=== PATIENT | male | born 1955 | race African-American/Black ===

== ENCOUNTER 2018-06-20 10:27 | Inpatient (IN) | payer OTHER ==
[2018-06-20 11:26] VITALS: BMI 23.6
--- NOTE | 2018-06-20 15:38 | HP ---
COWS - Scale Resting Pulse: 0= [place] 80 or Below (patient had street methadone prior arrival to patient [facility]) Sweatin= Chills/Flushing Restless Observation: 1= Difficult to Sit Still Pupil Size: 0= Normal to Room Light Bone or Joint Aches: 2= Severe Diffuse Aches Runny Nose/ Eye Tearin= Nasal Congestion GI Upset > 30mins: 2= Nausea/Diarrhea Tremor Observation: 2= Slight Tremor Visible Yawning Observation: 2= >3x During Session Anxiety or Irritability: 2=Irritable/Anxious Goose Flesh Skin: 0=Smooth Skin COWS Score: 13 CIWA Score - CIWA Score Nausea/Vomitin-Mild Nausea/No Vomiting Muscle Tremors: 4-Moderate,w/Arms Extend Anxiety: 4-Mod. Anxious/Guarded Agitation: 4-Moderately Restless Paroxysmal Sweats: 1-Minimal Palms Moist Orientation: 0-Oriented Tacttile Disturbances: 0-None Auditory Disturbances: 0-None Visual Disturbances: 0-None Headache: 0-None Present CIWA-Ar Total Score: 14 Admission [facility] - HPI Chief Complaint: alcohol and opiate withdrawal sx Allergies/Adverse Reactions: Allergies Allergy/AdvReac Type Severity Reaction Status Date / Time No Known Allergies Allergy Verified 06/20/18 11:26 History of Present Illness: 62 years old male with long history of alcohol opiate nicotine dependence has hypertension weight loss and arthritis of the lumbar spine and anxiety with depression is admitted to detox longest sobriety 16 years Exam Limitations: No Limitations - Ebola screening Have you traveled outside of the country in the last 21 days: No Have you had contact with anyone from an Ebola affected area: No Have you been sick,other than usual withdrawal symptoms: No Do you have a fever: No - Review of Systems Constitutional: Loss of Appetite, Changes in sleep, Unintentional Wgt. Loss, Unexplained wgt Loss EENT: reports: Blurred Vision (need eye glasses) Respiratory: reports: No Symptoms reported Cardiac: reports: No Symptoms Reported GI: reports: Poor Appetite, Poor Fluid Intake, Abdominal cramping : reports: No Symptoms Reported Musculoskeletal: reports: Back Pain, Joint Pain, Muscle Pain, Neck Pain Integumentary: reports: No Symptoms Reported Neuro: reports: Tremors Endocrine: reports: No Symptoms Reported Hematology: reports: No Symptoms Reported Psychiatric: reports: Judgement Intact, Orientated x3, Anxious, Depressed Other Systems: Reviewed and Negative Patient History - Patient Medical History Hx Anemia: No Hx Asthma: No Hx Chronic Obstructive Pulmonary Disease (COPD): No Hx Cancer: No Hx Cardiac Disorders: No Hx Congestive Heart Failure: No Hx Hypertension: Yes (DIAGNOSED 1 WEEK AGO, NOT ON MEDICATIONS) Hx Hypercholesterolemia: Yes (no treatment) Hx Pacemaker: No HX Cerebrovascular Accident: No Hx Seizures: No Hx Dementia: No Hx Diabetes: No Hx Gastrointestinal Disorders: No Hx Liver Disease: No Hx Genitourinary Disorders: No Hx Sexually Transmitted Disorders: Yes (GONORRHEA AND WAS TREATED 2 YEARS AGO) Hx Renal Disease (ESRD): No Hx Thyroid Disease: No Hx Human Immunodeficiency Virus (HIV): No Hx Hepatitis C: No Hx Depression: Yes Hx Suicide Attempt: No Hx Bipolar Disorder: No Hx Schizophrenia: No - Patient Surgical History Past Surgical History: No Hx Neurologic Surgery: No Hx Cataract Extraction: No Hx Cardiac Surgery: No Hx Lung Surgery: No Hx Breast Surgery: No Hx Breast Biopsy: No Hx Abdominal Surgery: No Hx Appendectomy: No Hx Cholecystectomy: No Hx Genitourinary Surgery: No Hx Orthopedic Surgery: No - PPD History Previous Implant?: Yes Documented Results: Positive w/o proof Implanted On Prior [facility] Admission?: No PPD to be Administered?: No - Smoking Cessation Smoking history: Current every day smoker Have you smoked in the past 12 months: Yes Aproximately how many cigarettes per day: 30 Cigars Per Day: 0 Hx Chewing Tobacco Use: No Initiated information on smoking cessation: Yes 'Breaking Loose' booklet given: 06/20/18 - Substance & Tx. History Hx Alcohol Use: Yes Hx Substance Use: Yes Substance Use Type: Alcohol, Heroin, Marijuana, Opiates Hx Substance Use Treatment: Yes (2001) - Substances Abused Alcohol Route: Oral Frequency: Daily Amount used: 1 pint of vodka, 2 bottles of wine coolers Age of first use: 49 Date of Last Use: 06/20/18 Heroin Route: Inhalation Frequency: Daily Amount used: 10 bags Age of first use: 16 Date of Last Use: 06/20/18 Family Disease History - Family Disease History Family Disease History: Heart Disease: Brother, [place]: Father (), Other: Father, Mother () Admission Physical Exam [facility] - Vital Signs Vital Signs: Vital Signs - 24 hr 08/30/18 11:22 Temperature 97.3 F L Pulse Rate 67 Respiratory 20 Rate Blood Pressure 117/84 - Physical General Appearance: Yes: Within Normal Limits, Appropriately Dressed, Mild Distress, Alcohol on Breath, Thin, Tremorous, Irritable, Sweating, Anxious HEENTM: Yes: Hearing grossly Normal, Normocephalic, Normal Voice Respiratory: Yes: Chest Non-Tender, Lungs Clear, Normal Breath Sounds, No Respiratory Distress, No Accessory Muscle Use Neck: Yes: Supple, Trachea in good position Breast: Yes: Breasts Symetrical, No Discharge Cardiology: Yes: Regular Rhythm, Regular Rate, S1, S2 Abdominal: Yes: Normal Bowel Sounds, Non Tender, Flat Genitourinary: Yes: Within Normal Limits Back: Yes: Normal Inspection Musculoskeletal: Yes: full range of Motion, Gait Steady, Back pain, Muscle Pain Extremities: Yes: Normal Inspection, Normal Range of Motion, Non-Tender, Tremors Neurological: Yes: Fully Oriented, Alert, Motor Strength 5/5, Normal Response, Depressed Affect Integumentary: Yes: Normal Color, Warm Lymphatic: Yes: Within Normal Limits - Diagnostic (1) Alcohol dependence with uncomplicated withdrawal Current Visit: Yes Status: Acute (2) Opioid dependence with withdrawal Current Visit: Yes Status: Acute (3) Hypertension Current Visit: Yes Status: Chronic Qualifiers: Hypertension type: unspecified secondary hypertension Qualified Code(s): I15.9 - Secondary hypertension, unspecified; I15 - Secondary hypertension (4) Arthritis Current Visit: Yes Status: Chronic (5) Weight loss Current Visit: Yes Status: Acute (6) Positive PPD, treated Current Visit: No Status: Resolved (7) Anxiety and depression Current Visit: Yes Status: Suspected Cleared for Admission [facility] - Detox or Rehab [facility] Level of Care: Medically Managed Detox Regimen/Protocol: Methadone/Librium [facility] Breath Alcohol Content Breath Alcohol Content: 0.014 Urine Drug Screen - Results Drug Screen Negative: Yes Urine Drug Screen Results: THC-Marijuana, OPI-Opiates, MTD-Methadone, OXY- Oxycodone
[2018-06-20] MEDS ORDERED: MAGNESIUM HYDROX 2400MG/30ML ORAL SUSPENSION 30 ML CUP PO PRN (15:45)
[2018-06-20] MEDS ORDERED: ACETAMINOPHEN 325 MG TABLET (FP) PO PRN (15:45)
[2018-06-20] MEDS ORDERED: chlordiazePOXIDE HCL 25 MG CAPSULE PO PRN (15:45)
[2018-06-20] MEDS ORDERED: guaiFENesin/D-METHORPHAN HB 10 ML UNIT-DOSE CUPS PO PRN (15:45)
[2018-06-20] MEDS ORDERED: LOPERAMIDE HCL 2 MG CAPSULE PO PRN (15:45)
[2018-06-20] MEDS ORDERED: P-EPHED 60MG/TRIPROLIDI 2.5MG TABLET PO PRN (15:45)
[2018-06-20] MEDS ORDERED: NICOTINE POLACRILEX 4 MG GUM BC PRN (15:45)
[2018-06-20] MEDS ORDERED: MAGNESIUM CITRATE 300 ML BOTTLE PO PRN (15:45)
[2018-06-20] MEDS ORDERED: MENTHOL/PHENOL 1 EACH UD MM PRN (15:45)
[2018-06-20] MEDS ORDERED: MAG HYDROX/AL HYDROX/SIMETH 30 ML UNIT-DOSE CUP PO PRN (15:45)
[2018-06-20] MEDS ORDERED: METHADONE HCL 10 MG TABLET (FOR DETOX USE ONLY) PO ONE ×2 (18:15→23:00)
[2018-06-20] MEDS: NICOTINE 21 MG/24 HOURS TOPICAL PATCH TD SCH (18:46)
[2018-06-20] MEDS: chlordiazePOXIDE HCL 25 MG CAPSULE PO SCH ×2 (18:47→22:34)
[2018-06-20] MEDS ORDERED: MELATONIN 5 MG TABLETS PO PRN (22:00)
[2018-06-20] MEDS: THIAMINE HCL 100 MG TABLET (FP) PO SCH (22:34)
[2018-06-21 02:44] LABS: URINE APPEARANCE TURBID; URINE BILIRUBIN NEGATIVE (<2.0 mg/dL); URINE COLOR YELLOW; URINE GLUCOSE (UA) NEGATIVE (NEGATIVE); URINE KETONE NEGATIVE (NEGATIVE); URINE LEUK ESTERASE NEGATIVE (NEGATIVE); URINE NITRITE NEGATIVE (NEGATIVE)
[2018-06-21 02:48] LABS: URINE PROTEIN 1+ (NEGATIVE)
[2018-06-21 02:50] LABS: EPI CELLS RARE /HPF (FEW); URINE MUCUS RARE; YEAST MANY
[2018-06-21] MEDS: chlordiazePOXIDE HCL 25 MG CAPSULE PO SCH ×4 (06:16→22:29)
[2018-06-21] MEDS ORDERED: cloNIDine HCL 0.1 MG TABLET PO ONE ×2 (06:53→21:51)
[2018-06-21] MEDS ORDERED: METHADONE HCL 10 MG TABLET (FOR DETOX USE ONLY) PO SCH (10:00)
[2018-06-21] MEDS: NICOTINE 21 MG/24 HOURS TOPICAL PATCH TD SCH (10:27)
[2018-06-21] MEDS: PRENATAL VITAMINS W/ FOLIC ACID TABLET (FP) PO SCH (10:27)
--- NOTE | 2018-06-21 10:28 | EKG ---
Test Reason : Blood Pressure : / mmHG Vent. Rate : 071 BPM Atrial Rate : 071 BPM P-R Int : 118 ms QRS Dur : 100 ms QT Int : 406 ms P-R-T Axes : 037 -14 -40 degrees QTc Int : 441 ms SINUS RHYTHM WITH PREMATURE SUPRAVENTRICULAR COMPLEXES MODERATE VOLTAGE CRITERIA FOR LVH, MAY BE NORMAL VARIANT NONSPECIFIC T WAVE ABNORMALITY ABNORMAL ECG NO PREVIOUS ECGS AVAILABLE Confirmed by DICK ABAD, TIMMY ([id number]) on 06/21/2018 10:28:12 AM Referred By: Confirmed By:TIMMY JENNINGS MD
[2018-06-21 10:59] LABS: HEMATOCRIT 39.8 % (35.4-49); MCH 30.2 pg (25.7-33.7); MCHC 32.6 g/dl (32.0-35.9); MEAN CELL VOLUME 92.5 fl (80-96); PLATELET COUNT 198 K/MM3 (134-434); WHITE BLOOD COUNT 4.4 K/mm3 (4.0-10.0)
[2018-06-21 11:05] LABS: ALBUMIN 3.5 g/dl (3.4-5.0); ANION GAP 6 MMOL/L (8-16); BLOOD UREA NITROGEN 17 mg/dL (7-18); CALCIUM 8.7 mg/dL (8.5-10.1); CHLORIDE 104 mmol/L (98-107); CO2 32 mmol/L (21-32); GLUCOSE,RANDOM 132 mg/dL (74-106); POTASSIUM 4.2 mmol/L (3.5-5.1); SODIUM 142 mmol/L (136-145)
[2018-06-21 11:10] LABS: ALK PHOS 60 U/L (45-117); BILIRUBIN,TOTAL 0.5 mg/dL (0.2-1.0); CREATININE 1.2 mg/dL (0.7-1.3); SGOT/AST 65 U/L (15-37); SGPT/ALT 46 U/L (12-78)
--- NOTE | 2018-06-21 13:13 | CONSULT ---
[facility] Psychiatric Consult - Data Date of interview: 06/21/18 Admission source: [facility] Identifying data: First admission to [facility] for this62 y/o AA male seeking detox treatment on for alcohol,cannabis and opioid dependence.Patient is single,a father of two,domiciled and currently employed. Substance Abuse History: Confirmed by patient in this interview.Smoking history : Current every day smoker. Have you smoked in the past 12 months: Yes. Aproximately how many cigarettes per day: 30. Cigars Per Day: 0. Hx Chewing Tobacco Use: No. Initiated information on smoking cessation: Yes. 'Breaking Loose' booklet given: 06/20/18. - Substance & Tx. History. Hx Alcohol Use: Yes. Hx Substance Use: Yes. Substance Use Type: Alcohol, Heroin, Marijuana, Opiates. Hx Substance Use Treatment: Yes (2001). - Substances Abused. Alcohol. Route: Oral. Frequency: Daily. Amount used: 1 pint of vodka, 2 bottles of wine coolers. Age of first use: 49. Date of Last Use: 06/20/18. * * Heroin. Route: Inhalation. Frequency: Daily. Amount used: 10 bags. Age of first use: 16. Date of Last Use: 06/20/18 Medical History: History of positive PPD (treated),hypertension,arthritis, chronic lumbar pain and a history of treatment for gonorrhea. Psychiatric History: Patient denies. Physical/Sexual Abuse/Trauma History: No history. Additional Comment: Urine Drug Screen Results: THC-Marijuana, OPI-Opiates, MTD- Methadone, OXY-Oxycodone.Noted. Mental Status Exam - Mental Status Exam Alert and Oriented to: Time, Place, Person Cognitive Function: Good Patient Appearance: Well Groomed Mood: Hopeful, Euthymic Affect: Appropriate, Normal Range Patient Behavior: Fatigued Speech Pattern: Clear, Appropriate Voice Loudness: Normal Thought Process: Intact, Goal Oriented Thought Disorder: Not Present Hallucinations: Denies Suicidal Ideation: Denies Homicidal Ideation: Denies Insight/Judgement: Fair Sleep: Well Appetite: Good Muscle strength/Tone: Normal Gait/Station: Normal Psychiatric Findings - Problem List (Ruth 1, 2,3) (1) Opioid dependence with withdrawal Current Visit: Yes Status: Acute (2) Alcohol dependence with uncomplicated withdrawal Current Visit: Yes Status: Acute (3) Marijuana dependence Current Visit: Yes Status: Acute (4) Nicotine dependence Current Visit: Yes Status: Acute - Initial Treatment Plan Initial Treatment Plan: Psychoeducation.Detoxification in progress.Observation.
[2018-06-21] MEDS ORDERED: ONDANSETRON 4 MG/2 ML VIAL IM PRN (18:43)
[2018-06-21] MEDS ORDERED: TRIMETHOBENZAMIDE HCL 200MG/2ML INJ IM ONE (19:20)
[2018-06-21] MEDS: IBUPROFEN 400 MG TABLET (FP) PO PRN (21:30)
[2018-06-21] MEDS: THIAMINE HCL 100 MG TABLET (FP) PO SCH (22:29)
[2018-06-22] MEDS: ONDANSETRON *ODT* 4 MG TABLET SL PRN ×2 (02:00→12:12)
[2018-06-22] MEDS: chlordiazePOXIDE HCL 25 MG CAPSULE PO SCH ×2 (05:35→11:09)
[2018-06-22] MEDS: PRENATAL VITAMINS W/ FOLIC ACID TABLET (FP) PO SCH (09:09)
[2018-06-22] MEDS: METHADONE HCL 5 MG TABLET (FOR DETOX USE ONLY) PO SCH (09:09)
[2018-06-22] MEDS: NICOTINE 21 MG/24 HOURS TOPICAL PATCH TD SCH (11:09)
[2018-06-22] MEDS ORDERED: chlordiazePOXIDE 5 MG CAPSULE PO SCH (17:00)
[2018-06-22] MEDS ORDERED: diazePAM 5 MG TABLET PO PRN (17:20)
[2018-06-22] MEDS ORDERED: diazePAM 5 MG TABLET PO ONE (17:30)
--- NOTE | 2018-06-22 19:00 | PN ---
S CIWA - CIWA Score Nausea/Vomitin Muscle Tremors: 2 Anxiety: 1-Mildly Anxious Agitation: 1-Slight > Activity Paroxysmal Sweats: 1-Minimal Palms Moist Orientation: 0-Oriented Tacttile Disturbances: 0-None Auditory Disturbances: 0-None Visual Disturbances: 0-None Headache: 1-Very Mild CIWA-Ar Total Score: 9 S COWS - Scale Resting Pulse: 1= [place] 81-100 Sweatin= Chills/Flushing Restless Observation: 1= Difficult to Sit Still Pupil Size: 0= Normal to Room Light Bone or Joint Aches: 0= None Runny Nose/ Eye Tearin= Nasal Congestion GI Upset > 30mins: 1= Stomach Cramp Tremor Observation of Outstretched Hands: 1= Tremor [place], Not Seen Yawning Observation: 0= None Anxiety or Irritability: 0= None Goose Flesh Skin: 0=Smooth Skin COWS Score: 6 S Progress Note (SOAP) Subjective: pt states he needs something for nausea, also wants valium rather than librium O: Vital Signs - 24 hr 06/21/18 06/22/18 06/22/18 21:16 00:30 03:30 Temperature 97.6 F Pulse Rate 55 L Respiratory 18 18 18 Rate Blood Pressure 180/106 06/22/18 06/22/18 06/22/18 06:28 06:53 11:21 Temperature 98.4 F 98.0 F Pulse Rate 49 L 53 L 86 Respiratory 18 20 Rate Blood Pressure 188/101 147/81 138/107 06/22/18 06/22/18 13:56 18:12 Temperature 98.6 F 97.4 F L Pulse Rate 74 96 H Respiratory 18 18 Rate Blood Pressure 148/96 119/87 Laboratory Tests 06/21/18 06/21/18 06/21/18 00:45 06:00 06:00 WBC 4.4 RBC 4.30 Hgb 13.0 Hct 39.8 MCV 92.5 MCH 30.2 MCHC 32.6 RDW 14.0 Plt Count 198 MPV 8.0 Sodium 142 Potassium 4.2 Chloride 104 Carbon Dioxide 32 Anion Gap 6 L BUN 17 Creatinine 1.2 Creat Clearance w eGFR > 60 Random Glucose 132 H Calcium 8.7 Total Bilirubin 0.5 AST 65 H ALT 46 Alkaline Phosphatase 60 Total Protein 7.0 Albumin 3.5 Urine Color Yellow Urine Appearance Turbid Urine pH 5.0 Ur Specific [place] 1.032 Urine Protein 1+ H Urine Glucose (UA) Negative Urine Ketones Negative Urine Blood Negative Urine Nitrite Negative Urine Bilirubin Negative Urine Urobilinogen 2.0 Ur Leukocyte Esterase Negative Urine WBC (Auto) 175 Urine RBC (Auto) 5 Ur Epithelial Cells Rare Urine Mucus Rare Urine Yeast Many RPR Titer 06/21/18 06:00 WBC RBC Hgb Hct MCV MCH MCHC RDW Plt Count MPV Sodium Potassium Chloride Carbon Dioxide Anion Gap BUN Creatinine Creat Clearance w eGFR Random Glucose Calcium Total Bilirubin AST ALT Alkaline Phosphatase Total Protein Albumin Urine Color Urine Appearance Urine pH Ur Specific [place] Urine Protein Urine Glucose (UA) Urine Ketones Urine Blood Urine Nitrite Urine Bilirubin Urine Urobilinogen Ur Leukocyte Esterase Urine WBC (Auto) Urine RBC (Auto) Ur Epithelial Cells Urine Mucus Urine Yeast RPR Titer Nonreactive VS Ok increased liver enzyme A/P: 62 years old male with long history of alcohol opiate nicotine dependence, here for detox: continue detox protocol, prn meds for Sx
[2018-06-22] MEDS: THIAMINE HCL 100 MG TABLET (FP) PO SCH (22:51)
[2018-06-22] MEDS: diazePAM 5 MG TABLET PO SCH (22:51)
[2018-06-23] MEDS: cloNIDine HCL 0.1 MG TABLET PO PRN ×2 (05:39→14:14)
[2018-06-23] MEDS: diazePAM 5 MG TABLET PO SCH ×3 (05:40→22:41)
[2018-06-23] MEDS ORDERED: LISINOPRIL 20 MG TABLET (FP) PO ONE (08:41)
[2018-06-23] MEDS: ONDANSETRON *ODT* 4 MG TABLET SL PRN (08:44)
[2018-06-23] MEDS: METHADONE HCL 5 MG TABLET (FOR DETOX USE ONLY) PO SCH (09:09)
[2018-06-23] MEDS: PRENATAL VITAMINS W/ FOLIC ACID TABLET (FP) PO SCH (09:09)
[2018-06-23] MEDS: NICOTINE 21 MG/24 HOURS TOPICAL PATCH TD SCH (09:28)
[2018-06-23] MEDS ORDERED: TRIMETHOBENZAMIDE HCL 200MG/2ML INJ IM ONE (12:06)
--- NOTE | 2018-06-23 12:13 | PN ---
S CIWA - CIWA Score Nausea/Vomitin-No Nausea/No Vomiting Muscle Tremors: 4-Moderate,w/Arms Extend Anxiety: 4-Mod. Anxious/Guarded Agitation: 4-Moderately Restless Paroxysmal Sweats: 1-Minimal Palms Moist Orientation: 0-Oriented Tacttile Disturbances: 0-None Auditory Disturbances: 0-None Visual Disturbances: 0-None Headache: 0-None Present CIWA-Ar Total Score: 13 [facility]HS COWS - Scale Resting Pulse: 0= [place] 80 or Below Sweatin= Chills/Flushing Restless Observation: 3= Extraneous Movement Pupil Size: 2= Moderately Dilated Bone or Joint Aches: 1= Mild Discomfort Runny Nose/ Eye Tearin= None GI Upset > 30mins: 3= Vomiting/Diarrhea Tremor Observation of Outstretched Hands: 2= Slight Tremor Visible Yawning Observation: 1= 1-2x During Session Anxiety or Irritability: 2=Irritable/Anxious Goose Flesh Skin: 0=Smooth Skin COWS Score: 15 S Progress Note (SOAP) Subjective: ANXIETY,SWEATS/CHILLS,IRRITABILITY,NAUSEA/VOMITING,FATIGUE. Objective: 06/23/18 12:12 Vital Signs 06/23/18 06/23/18 06/23/18 06:10 07:29 10:49 Temperature 96.9 F L 98.5 F Pulse Rate 71 69 68 Respiratory 18 18 Rate Blood Pressure 189/99 162/97 152/114 06/23/18 10:50 Temperature Pulse Rate Respiratory Rate Blood Pressure 188/114 Laboratory Tests 06/21/18 06/21/18 06/21/18 00:45 06:00 06:00 WBC 4.4 RBC 4.30 Hgb 13.0 Hct 39.8 MCV 92.5 MCH 30.2 MCHC 32.6 RDW 14.0 Plt Count 198 MPV 8.0 Sodium 142 Potassium 4.2 Chloride 104 Carbon Dioxide 32 Anion Gap 6 L BUN 17 Creatinine 1.2 Creat Clearance w eGFR > 60 Random Glucose 132 H Calcium 8.7 Total Bilirubin 0.5 AST 65 H ALT 46 Alkaline Phosphatase 60 Total Protein 7.0 Albumin 3.5 Urine Color Yellow Urine Appearance Turbid Urine pH 5.0 Ur Specific [place] 1.032 Urine Protein 1+ H Urine Glucose (UA) Negative Urine Ketones Negative Urine Blood Negative Urine Nitrite Negative Urine Bilirubin Negative Urine Urobilinogen 2.0 Ur Leukocyte Esterase Negative Urine WBC (Auto) 175 Urine RBC (Auto) 5 Ur Epithelial Cells Rare Urine Mucus Rare Urine Yeast Many RPR Titer 06/21/18 06:00 WBC RBC Hgb Hct MCV MCH MCHC RDW Plt Count MPV Sodium Potassium Chloride Carbon Dioxide Anion Gap BUN Creatinine Creat Clearance w eGFR Random Glucose Calcium Total Bilirubin AST ALT Alkaline Phosphatase Total Protein Albumin Urine Color Urine Appearance Urine pH Ur Specific [place] Urine Protein Urine Glucose (UA) Urine Ketones Urine Blood Urine Nitrite Urine Bilirubin Urine Urobilinogen Ur Leukocyte Esterase Urine WBC (Auto) Urine RBC (Auto) Ur Epithelial Cells Urine Mucus Urine Yeast RPR Titer Nonreactive UA NOTED ELEVATED WBC Assessment: 06/23/18 12:12 WITHDRAWAL SX Plan: CONTINUE DETOX REPEAT UA TODAY INCREASE PO FLUIDS
[2018-06-23] MEDS ORDERED: chlordiazePOXIDE HCL 10 MG CAPSULE PO SCH (17:00)
[2018-06-23] MEDS: THIAMINE HCL 100 MG TABLET (FP) PO SCH (22:40)
[2018-06-23] MEDS: IBUPROFEN 400 MG TABLET (FP) PO PRN (22:42)
[2018-06-24] MEDS: ONDANSETRON *ODT* 4 MG TABLET SL PRN (08:37)
[2018-06-24] MEDS ORDERED: TRIMETHOBENZAMIDE HCL 200MG/2ML INJ IM ONE (08:55)
[2018-06-24] MEDS ORDERED: TRIMETHOBENZAMIDE HCL 200MG/2ML INJ IM PRN (08:56)
[2018-06-24] MEDS ORDERED: METHADONE HCL 10 MG TABLET (FOR DETOX USE ONLY) PO SCH (10:00)
[2018-06-24] MEDS: NICOTINE 21 MG/24 HOURS TOPICAL PATCH TD SCH (10:35)
[2018-06-24] MEDS: PRENATAL VITAMINS W/ FOLIC ACID TABLET (FP) PO SCH (10:35)
[2018-06-24] MEDS: diazePAM 5 MG TABLET PO SCH ×2 (10:35→22:32)
--- NOTE | 2018-06-24 12:05 | PN ---
[facility] Progress Note (SOAP) Subjective: PT STILL HAVING ACTIVE NAUSEA AND VOMITING. ANXIETY,SLIGHT TREMORS. Objective: 06/24/18 12:04 Vital Signs 06/24/18 06/24/18 06:17 09:14 Temperature 97.2 F L 98.7 F Pulse Rate 72 70 Respiratory 18 16 Rate Blood Pressure 101/68 152/109 Laboratory Tests 06/21/18 06/21/18 06/21/18 00:45 06:00 06:00 WBC 4.4 RBC 4.30 Hgb 13.0 Hct 39.8 MCV 92.5 MCH 30.2 MCHC 32.6 RDW 14.0 Plt Count 198 MPV 8.0 Sodium 142 Potassium 4.2 Chloride 104 Carbon Dioxide 32 Anion Gap 6 L BUN 17 Creatinine 1.2 Creat Clearance w eGFR > 60 Random Glucose 132 H Calcium 8.7 Total Bilirubin 0.5 AST 65 H ALT 46 Alkaline Phosphatase 60 Total Protein 7.0 Albumin 3.5 Urine Color Yellow Urine Appearance Turbid Urine pH 5.0 Ur Specific [place] 1.032 Urine Protein 1+ H Urine Glucose (UA) Negative Urine Ketones Negative Urine Blood Negative Urine Nitrite Negative Urine Bilirubin Negative Urine Urobilinogen 2.0 Ur Leukocyte Esterase Negative Urine WBC (Auto) 175 Urine RBC (Auto) 5 Ur Epithelial Cells Rare Urine Mucus Rare Urine Yeast Many RPR Titer 06/21/18 06:00 WBC RBC Hgb Hct MCV MCH MCHC RDW Plt Count MPV Sodium Potassium Chloride Carbon Dioxide Anion Gap BUN Creatinine Creat Clearance w eGFR Random Glucose Calcium Total Bilirubin AST ALT Alkaline Phosphatase Total Protein Albumin Urine Color Urine Appearance Urine pH Ur Specific [place] Urine Protein Urine Glucose (UA) Urine Ketones Urine Blood Urine Nitrite Urine Bilirubin Urine Urobilinogen Ur Leukocyte Esterase Urine WBC (Auto) Urine RBC (Auto) Ur Epithelial Cells Urine Mucus Urine Yeast RPR Titer Nonreactive Assessment: 06/24/18 12:04 WITHDRAWAL SX Plan: CONTINUE DETOX TIGAN 200 MG IM NOW WAS GIVEN, THEN Q6H PRN FOR ACTIVE VOMITING EPISODES.
[2018-06-24 14:40] LABS: URINE APPEARANCE TURBID; URINE BILIRUBIN NEGATIVE (<2.0 mg/dL); URINE COLOR AMBER; URINE GLUCOSE (UA) 2+ (NEGATIVE); URINE KETONE NEGATIVE (NEGATIVE); URINE LEUK ESTERASE NEGATIVE (NEGATIVE); URINE NITRITE NEGATIVE (NEGATIVE); URINE UROBILINOGEN NEGATIVE mg/dL (0.2-1.0)
[2018-06-24 14:43] LABS: URINE PROTEIN 2+ (NEGATIVE)
[2018-06-24 15:09] LABS: CALCIUM OXALATE CRYSTALS FEW /hpf (NONE SEEN); EPI CELLS RARE /HPF (FEW); URINE HYALINE CAST 14 /lpf; URINE MUCUS FEW
[2018-06-24] MEDS: IBUPROFEN 400 MG TABLET (FP) PO PRN (19:23)
[2018-06-24] MEDS: THIAMINE HCL 100 MG TABLET (FP) PO SCH (22:32)
[2018-06-24] MEDS: cloNIDine HCL 0.1 MG TABLET PO PRN (22:33)
[2018-06-25] MEDS ORDERED: METHADONE HCL 5 MG TABLET (FOR DETOX USE ONLY) PO SCH (06:00)
[2018-06-25 09:17] VITALS: BP 135/87; PULSE 86; TEMP 98.7
--- NOTE | 2018-06-25 17:11 | DS ---
[facility] Detox Discharge Summary Admission Date: 06/20/18 Discharge Date: 06/25/18 - History Present History: Alcohol Dependence, Opioid Dependence Additional Comments: DETOX COMPLETED. ALERT O X 3. Pertinent Past History: DETOX COMPLETED. ALERT OX 3. PT WILL FOLLOW UP WITH HIS PMD DR. INDIRA MARTINEZ FOR MEDICAL MANAGEMENT. - Physical Exam Results Vital Signs: Vital Signs Temperature 98.7 F 06/25/18 09:16 Pulse Rate 86 06/25/18 09:16 Respiratory Rate 18 06/25/18 09:16 Blood Pressure 135/87 06/25/18 09:16 O2 Sat by Pulse Oximetry (%) - Treatment Hospital Course: Detox Protocol Followed, Detoxed Safely, Responded well, Discharged Condition Good - Medication Discharge Medications: Ambulatory Orders NK [No Known Home Medication] 06/20/18 - Diagnosis (1) Alcohol dependence with uncomplicated withdrawal Status: Acute (2) Marijuana dependence Status: Acute (3) Nicotine dependence Status: Acute Qualifiers: Nicotine product type: cigarettes Substance use status: in withdrawal Qualified Code(s): F17.213 - Nicotine dependence, cigarettes, with withdrawal (4) Opioid dependence with withdrawal Status: Acute (5) Weight loss Status: Acute (6) Arthritis Status: Chronic (7) Hypertension Status: Chronic Qualifiers: Hypertension type: unspecified secondary hypertension Qualified Code(s): I15.9 - Secondary hypertension, unspecified; I15 - Secondary hypertension (8) Abnormal finding on urinalysis Status: Acute (9) Nausea & vomiting Status: Acute Qualifiers: Vomiting type: unspecified - AMA Did Patient Leave Against Medical Advice: No
--- NOTE | 2018-06-25 17:11 | PN ---
[facility] Progress Note (SOAP) Subjective: DETOX COMPLETED. ALERT O X 3. NAD. Objective: 06/25/18 17:11 Vital Signs 06/25/18 09:16 Temperature 98.7 F Pulse Rate 86 Respiratory 18 Rate Blood Pressure 135/87 Laboratory Tests 06/21/18 06/21/18 06/21/18 00:45 06:00 06:00 WBC 4.4 RBC 4.30 Hgb 13.0 Hct 39.8 MCV 92.5 MCH 30.2 MCHC 32.6 RDW 14.0 Plt Count 198 MPV 8.0 Sodium 142 Potassium 4.2 Chloride 104 Carbon Dioxide 32 Anion Gap 6 L BUN 17 Creatinine 1.2 Creat Clearance w eGFR > 60 Random Glucose 132 H Calcium 8.7 Total Bilirubin 0.5 AST 65 H ALT 46 Alkaline Phosphatase 60 Total Protein 7.0 Albumin 3.5 Urine Color Yellow Urine Appearance Turbid Urine pH 5.0 Ur Specific [place] 1.032 Urine Protein 1+ H Urine Glucose (UA) Negative Urine Ketones Negative Urine Blood Negative Urine Nitrite Negative Urine Bilirubin Negative Urine Urobilinogen 2.0 Ur Leukocyte Esterase Negative Urine WBC (Auto) 175 Urine RBC (Auto) 5 Ur Epithelial Cells Rare Calcium Oxalate Crystal Hyaline Casts Urine Mucus Rare Urine Yeast Many RPR Titer 06/21/18 06/24/18 06:00 11:00 WBC RBC Hgb Hct MCV MCH MCHC RDW Plt Count MPV Sodium Potassium Chloride Carbon Dioxide Anion Gap BUN Creatinine Creat Clearance w eGFR Random Glucose Calcium Total Bilirubin AST ALT Alkaline Phosphatase Total Protein Albumin Urine Color [place] Urine Appearance Turbid Urine pH 5.0 Ur Specific [place] 1.020 Urine Protein 2+ H Urine Glucose (UA) 2+ H Urine Ketones Negative Urine Blood Negative Urine Nitrite Negative Urine Bilirubin Negative Urine Urobilinogen Negative Ur Leukocyte Esterase Negative Urine WBC (Auto) 8 Urine RBC (Auto) 4 Ur Epithelial Cells Rare Calcium Oxalate [place] Few Hyaline Casts 14 Urine Mucus Few Urine Yeast RPR Titer Nonreactive Assessment: 06/25/18 17:11 MEDICALLY STABLE Plan: D/C PT TODAY
[2018-06-26] MEDS ORDERED: diazePAM 5 MG TABLET PO SCH (10:00)
== END 2018-06-25 09:40 | disposition home or self-care (01) | DRG 897 ==
LOC: YASAS 10:27 → Y3N 17:35
PROC: HZ2ZZZZ Detoxification Services for Substance Abuse Treatment (ICD-10-PCS; principal; 2018-06-20)
DX: F11.23 Opioid dependence with withdrawal (principal); F10.230 Alcohol dependence with withdrawal, uncomplicated; F12.20 Cannabis dependence, uncomplicated; F17.213 Nicotine dependence, cigarettes, with withdrawal; F41.8 Other specified anxiety disorders; I10 Essential (primary) hypertension; M12.9 Arthropathy, unspecified; R63.4 Abnormal weight loss; Z68.23 Body mass index [BMI] 23.0-23.9, adult; R11.2 Nausea with vomiting, unspecified; R82.90 Unspecified abnormal findings in urine; Z86.19 Personal history of other infectious and parasitic diseases
CPT/HCPCS: 36415; 71046-TC-FY; 80053; 81003; 81015; 85027; 86593; 93005; 93010; J0735; Q0162